=== PATIENT | male | born 1950 | race Caucasian/White ===

== ENCOUNTER 2020-08-02 13:47 | Emergency (ER) | payer MEDICARE ==
--- NOTE | 2020-08-02 14:20 | ER Document Report ---
ED Medical Screen (RME) - General Chief Complaint: Weakness Stated Complaint: WEAKNESS - HPI Notes: 08/02/20 14:17 Rapid Medical Exam HPI: Six 9-year-old male presents to the ER complaining of 3 to 4 days of cold sweats, loss of appetite, fatigue, loss of taste. Patient says he did have a temp of 100.1 this morning. No known Covid contacts. Patient believes this could possibly be related to some type of colon infection that he had a couple years ago although he does not know details of this. He says his abdomen has no pain he is not vomiting and has normal bowel movements. He denies sore throat, cough, shortness of breath, chest pains, nausea vomiting. My exam did note patient had some mild right upper quadrant tenderness. Patient does still have a gallbladder. I will put in the basic Covid and flu orders. I will leave it up to the emergency room physicians as to whether patient should get labs or possible ultrasound or further imaging. Physical Exam: GENERAL: Well-appearing, well-nourished and in no acute distress. HEAD: Atraumatic, normocephalic. ENT: Moist mucous membranes. RESP: Respirations even and unlabored CV- Regular rate. NEURO: No focal neurological deficits. Moves all extremities spontaneously and on command. My involvement in this patients care was limited to a rapid initial assessment. A comprehensive ED assessment and evaluation of the patient, analysis of test results, treatment, and completion of the medical decision making process will be performed by other ER providers. Past Medical History - Social History Frequency of alcohol use: Occasional Drug Abuse: None Physical Exam - Vital signs Vitals: Temp Pulse Resp BP Pulse Ox 98.2 F 83 16 138/63 H 96 08/02/20 13:57 08/02/20 13:57 08/02/20 13:57 08/02/20 13:57 08/02/20 13:57 Course - Vital Signs Vital signs: Temp Pulse Resp BP Pulse Ox 98.2 F 83 16 138/63 H 96 08/02/20 13:57 08/02/20 13:57 08/02/20 13:57 08/02/20 13:57 08/02/20 13:57
--- NOTE | 2020-08-02 15:57 | RADIOLOGY REPORT (SQ) ---
EXAM DESCRIPTION: CHEST SINGLE VIEW IMAGES COMPLETED DATE/TIME: 08/02/2020 3:37 pm REASON FOR STUDY: fevers, cough COMPARISON: None. NUMBER OF VIEWS: One view. TECHNIQUE: Single frontal radiographic view of the chest acquired. LIMITATIONS: None. FINDINGS: LUNGS AND PLEURA: No opacities, masses or pneumothorax. No pleural effusion. MEDIASTINUM AND HILAR STRUCTURES: No masses. Contour normal. HEART AND VASCULAR STRUCTURES: Heart enlarged without failure. Normal vasculature. BONES: No acute findings. HARDWARE: CABG. OTHER: No other significant finding. IMPRESSION: HEART ENLARGED WITHOUT FAILURE. NO OTHER SIGNIFICANT RADIOGRAPHIC FINDING IN THE CHEST. TECHNICAL DOCUMENTATION: JOB ID: [id number] 2010 [employer]- All Rights Reserved Reading location - IP/workstation name: [email or web address]
--- NOTE | 2020-08-02 16:27 | ER Document Report ---
ED General - General Chief Complaint: Weakness Stated Complaint: WEAKNESS Time Seen by Provider: 08/02/20 16:08 Primary Care Provider: MELONY HAND NP [Primary Care Provider] - Follow up as needed - HPI Notes: Cough fever and slight weakness and malaise for the last 3 to 4 days. Patient has low-grade temps. Some chills. No rigors. Has a dry cough. No history of lung disease. Has a history of ischemic heart disease but does not recall ever being told that he had an enlarged heart. No travel outside the area. No exposure to illness that he knows of. Will state health. - Related Data Allergies/Adverse Reactions: No Known Allergies Allergy (Unverified 08/02/20 16:34) Past Medical History - General Information source: Patient - Social History Smoking Status: Current Every Day Smoker Frequency of alcohol use: Occasional Drug Abuse: None Family History: Reviewed & Not Pertinent Patient has homicidal ideation: No - Medical History Medical History: Other Notes: Past medical history as documented in the electronic health record is reviewed. - Past Medical History Cardiac Medical History: Reports: Hx Coronary Artery Disease, Hx Heart Attack Review of Systems - Review of Systems Notes: All other systems reviewed are negative or noncontributory except as noted the present illness. Physical Exam - Vital signs Vitals: Temp Pulse Resp BP Pulse Ox 98.2 F 83 16 138/63 H 96 08/02/20 13:57 08/02/20 13:57 08/02/20 13:57 08/02/20 13:57 08/02/20 13:57 - Notes Notes: General: This is a well-developed well-nourished male no acute distress. Vital signs and nursing chief complaint are reviewed. Neck: Supple, nontender, trachea midline. Chest: Normal configuration lungs clear to auscultation all sherman. Heart: Regular rate and rhythm no murmur. Skin: Warm moist good turgor no rashes. Neuro: No focal neuro deficits noted. Course - Re-evaluation Re-evalutation: 08/02/20 16:27 Given that the patient does not recall whether he is ever been to diagnosed with cardiomegaly or not I will undertake a little bit more extensive work-up just to make sure that he does not have any evidence of myocarditis. Troponin, BNP, and CRP were all ordered along with an EKG. Covid swab and rapid flu are pending. 08/02/20 18:35 Patient remained stable and unchanged throughout his stay. His troponin was minimally elevated above the statistical normal but did not indicate acute [place] or serious myocardial inflammation. His BNP is moderately elevated but his chest x-ray does not show any evidence of heart failure nor does his exam suggest acute failure. His C-reactive protein is markedly elevated consistent with COVID-19 disease. I discussed all these results with the patient. I think it is very likely that he has COVID-19. We will treat him with Zithromax and dexamethasone. He should follow-up with his primary care provider in 2 to 3 days for recheck. - Vital Signs Vital signs: Temp Pulse Resp BP Pulse Ox 98.5 F 85 24 H 158/69 H 91 L 08/02/20 16:58 08/02/20 16:58 08/02/20 16:58 08/02/20 16:58 08/02/20 16:58 - Laboratory Results Laboratory Results Interpreted: 08/02/20 08/02/20 16:45 16:45 C-Reactive Protein 235.1 H NT-Pro-B Natriuret Pep 4530 H Critical Laboratory Results Reviewed: No Critical Results - Radiology Results Radiology Results Interpreted: 08/02/20 18:34 Chest X-Ray 08/02/20 15:17 IMPRESSION: HEART ENLARGED WITHOUT FAILURE. NO OTHER SIGNIFICANT RADIOGRAPHIC FINDING IN THE CHEST. 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 Discharge - Discharge Clinical Impression: Viral syndrome Condition: Good Disposition: HOME, SELF-CARE Instructions: COVID-19 Guidance for Persons Under Investigation, Viral Syndrome ([facility]) Prescriptions: Azithromycin 250 mg PO DAILY #4 tablet Dexamethasone 2 mg PO BID #6 tablet Referrals: MELONY HAND NP [Primary Care Provider] - Follow up as needed
[2020-08-02 16:37] LABS: A TYPE INFLUENZA AG NEGATIVE (NEGATIVE); B INFLUENZA AG NEGATIVE (NEGATIVE)
[2020-08-02 16:58] VITALS: BP 158/69
[2020-08-02 18:03] LABS: TROPONIN I 0.045 ng/mL
[2020-08-02] MEDS ORDERED: AZITHROMYCIN 250 MG TABLET PO ONE (18:33)
[2020-08-02] MEDS ORDERED: DEXAMETHASONE 4 MG TABLET PO ONE (18:34)
--- NOTE | 2020-08-02 19:53 | EKG REPORT ---
SEVERITY:- ABNORMAL ECG - SINUS RHYTHM LEFT ATRIAL ABNORMALITY CONSIDER RIGHT VENTRICULAR HYPERTROPHY CONSIDER LEFT VENTRICULAR HYPERTROPHY ABNORMAL T, CONSIDER ISCHEMIA, INFERIOR LEADS : Confirmed by: Christy Keane MD 02-Aug-2020 19:53:33
== END 2020-08-02 19:09 | disposition home or self-care (01) ==
LOC: ER 13:47
DX: B34.9 Viral infection, unspecified (principal); I51.7 Cardiomegaly; R53.1 Weakness; R53.81 Other malaise; R05 Cough; R68.83 Chills (without fever); R79.89 Other specified abnormal findings of blood chemistry; R79.82 Elevated C-reactive protein (CRP); I25.10 Atherosclerotic heart disease of native coronary artery without angina pectoris; I25.2 Old myocardial infarction; F17.200 Nicotine dependence, unspecified, uncomplicated; Z20.822 Contact with and (suspected) exposure to COVID-19
CPT/HCPCS: 93005; 99285; 36415; 86140; 84484; 87804; 83880; 71045; 93010; U0003; A9270 ×2; C9803; 87635; J8540